=== PATIENT | female | born 1965 | race Hispanic/Latino ===

== ENCOUNTER 2019-06-07 20:40 | Emergency (ER) | payer OTHER, MEDICARE ==
[~2019-06-07 20:40] MED LIST: FAMILY TO BRING; HYDR-4060 PO; LISI40TA4 PO; LORA1TAB3 PO; METH85CR TP; NAPR-1192 PO; PREG300C PO; SIMV20TA6 PO; ZOLP10TA6 PO
[2019-06-07] MEDS ORDERED: ONDANSETRON ODT 4 MG TAB ONE (22:05)
[2019-06-07] MEDS ORDERED: HYDROCODONE/ACETAMINOPHEN 10/325 MG TAB ONE (22:05)
[2019-06-07] MEDS ORDERED: OCTYL 2-CYANOACRYLATE 1 EACH TP ONE (23:24)
== END 2019-06-08 00:05 | disposition home or self-care (01) ==
LOC: EDH 20:40
DX: S81.812A Laceration without foreign body, left lower leg, initial encounter (principal); S00.03XA Contusion of scalp, initial encounter; M54.5 Low back pain; M79.602 Pain in left arm; I10 Essential (primary) hypertension; Z88.1 Allergy status to other antibiotic agents; W10.8XXA Fall (on) (from) other stairs and steps, initial encounter; Y93.89 Activity, other specified; Y92.89 Other specified places as the place of occurrence of the external cause; Y99.8 Other external cause status
CPT/HCPCS: 12032; 70450; 72131; 73060; 73562; 73590

== ENCOUNTER 2023-01-13 12:16 | Emergency (ER) | payer OTHER, MEDICARE ==
[~2023-01-13] VITALS: Ht 162.6 cm; Wt 76.2 kg
[~2023-01-13 12:16] MED LIST changes: -LISI40TA4 PO; +LISI40TA9 PO; +SIMV-43 PO; -SIMV20TA6 PO
[2023-01-13 12:18] VITALS: BP 105/64
[2023-01-13] MEDS ORDERED: MOXIOS OD (12:47)
== END 2023-01-13 12:59 | disposition home or self-care (01) ==
LOC: EDH 12:16
DX: H10.9 Unspecified conjunctivitis (principal); E11.9 Type 2 diabetes mellitus without complications; E78.00 Pure hypercholesterolemia, unspecified; I10 Essential (primary) hypertension; Z79.1 Long term (current) use of non-steroidal anti-inflammatories (NSAID); Z79.899 Other long term (current) drug therapy; Z88.1 Allergy status to other antibiotic agents; Z88.2 Allergy status to sulfonamides

== ENCOUNTER 2023-01-24 17:30 | Emergency (ER) | payer OTHER, MEDICARE ==
[~2023-01-24] VITALS: Ht 162.6 cm; Wt 76.2 kg
[~2023-01-24 17:30] MED LIST changes: +MOXIOS OD
[2023-01-24] MEDS ORDERED: KETOROLAC 30MG VIAL (30MG/ML) IVP ONE (18:00)
[2023-01-24] MEDS ORDERED: ONDANSETRON 4MG INJ IVP ONE (18:00)
[2023-01-24] MEDS ORDERED: 0.9%NACL 1000ML 1,000 ML IV ONE (18:00)
[2023-01-24 18:12] LABS: APPEARANCE,URINE CLEAR (CLEAR); BILIRUBIN,URINE NEGATIVE (NEGATIVE); COLOR,URINE LIGHT-YELLOW (YELLOW); GLUCOSE, URINE (UA) >=1000 mg/dL (NEGATIVE); KETONES,URINE NEGATIVE (NEGATIVE); LEUKOCYTE ESTERASE ,URINE NEGATIVE Leu/uL (NEGATIVE); NITRATE,URINE NEGATIVE (NEGATIVE); OCCULT BLOOD,URINE NEGATIVE (NEGATIVE); PH,URINE 5.5 (5.0-8.0); PROTEIN,URINE NEGATIVE (NEGATIVE); UROBILINOGEN,URINE 0.2 mg/dL (0.2-1.0)
[2023-01-24 18:14] LABS: BACTERIA,URINE RARE /HPF (None Seen); RBC,URINE 0-1 /HPF (0-1); SQUAMOUS EPITHELIAL CELL,UR RARE /HPF (0-2); WBC,URINE 0-1 /HPF (0-1)
[2023-01-24 18:36] LABS: BASOPHILS % (AUTO) 0.5 % (0.0-5.0); EOSINOPHILS % (AUTO) 0.9 % (0.0-8.0); HEMATOCRIT 33.1 % (36-48); LYMPHOCYTES % (AUTO) 24.1 % (21.0-51.0); MEAN CORPUSCULAR HEMOGLOBIN 29.2 pg (27.0-33.0); MEAN CORPUSCULAR HGB CONC 33.5 g/dL (32.0-36.0); MEAN CORPUSCULAR VOLUME 87.1 fL (79-99); NEUTROPHILS % (AUTO) 65.5 % (40.0-77.0); PLATELET COUNT (AUTO) 244 K/uL (130-400); RED CELL DISTRIBUTION WIDTH 13.5 % (11.0-15.5); WHITE BLOOD COUNT (AUTO) 8.9 K/uL (4.8-10.8)
[2023-01-24 18:50] LABS: ALBUMIN 3.4 g/dL (3.5-5.0); CREATININE 1.5 mg/dL (0.5-1.5); POTASSIUM 3.6 mmol/L (3.5-5.1); TOTAL PROTEIN, SERUM 6.6 g/dL (6.0-8.3)
[2023-01-24] MEDS ORDERED: 0.9%NACL 1000ML 2,000 ML IV ONE (19:00)
[2023-01-24] MEDS ORDERED: MORPHINE 4 MG SYG IM ONE (19:30)
[2023-01-24] MEDS ORDERED: MORPHINE 4 MG SYG ONE (19:30)
[2023-01-24] MEDS ORDERED: INSULIN HUMULIN R 100 UNIT/ML 3ML IV ONE (20:00)
[2023-01-24] MEDS ORDERED: CYCL10TA16 PO (21:29)
[2023-01-24] MEDS ORDERED: DOCU-133 PO (21:32)
[2023-01-24 22:03] VITALS: BP 128/78
== END 2023-01-24 22:05 | disposition home or self-care (01) ==
LOC: EDH 17:30
DX: E11.65 Type 2 diabetes mellitus with hyperglycemia (principal); R10.9 Unspecified abdominal pain; K59.00 Constipation, unspecified; I10 Essential (primary) hypertension; E78.00 Pure hypercholesterolemia, unspecified; Z79.899 Other long term (current) drug therapy; Z79.1 Long term (current) use of non-steroidal anti-inflammatories (NSAID); Z88.1 Allergy status to other antibiotic agents; Z88.2 Allergy status to sulfonamides
CPT/HCPCS: 99285; 74176; 96374; 96361; 96375; 80053; 83690; 85025; 82948; 83605 ×2; 82010; 81001; 36415; 96372; J1815; J7030 ×3; J2405; J2270; J1885

== ENCOUNTER 2024-02-04 18:41 | Emergency (ER) | payer OTHER, MEDICARE ==
[~2024-02-04] VITALS: Ht 162.6 cm; Wt 66.2 kg
[~2024-02-04 18:41] MED LIST changes: +ALBUHFA IH; +ALPR-412 PO; +ASPI-1012 PO; +ATOR10 PO; +CARV25TA PO; +CYCL-309 PO; +CYCL10TA16 PO; +DOCU-116 PO; +DOCU-133 PO; +DULA3PEN SQ; +DULO30CA52 PO; +EMPA25TA PO; +ESOM20SU PO; -FAMILY TO BRING; +FERR500P12 MC; +FLUO40CA7 PO; +FOLI0.8C PO; -HYDR-4060 PO; +LISI10TA24 PO; -LISI40TA9 PO; -LORA1TAB3 PO; +METF-446 PO; -METH85CR TP; -NAPR-1192 PO; +PREG150C PO; -PREG300C PO; -SIMV-43 PO; -ZOLP10TA6 PO
[2024-02-04 19:33] VITALS: BP 103/69; PULSE 79; RESP 20; O2SAT 99
== END 2024-02-04 22:34 | disposition left against medical advice (07) ==
LOC: EDH 18:41
DX: R51.9 Headache, unspecified (principal); H53.8 Other visual disturbances; Z53.21 Procedure and treatment not carried out due to patient leaving prior to being seen by health care provider
CPT/HCPCS: 99281

== ENCOUNTER → 2024-04-30 | Outpatient (CLI) | payer OTHER, MEDICARE | END | disposition home or self-care (01) | LOC: RAH 13:18 | PROVIDERS: ATTEND Family Medicine | DX: R07.82 Intercostal pain (principal) | CPT/HCPCS: 71101 ==

== ENCOUNTER 2024-07-12 12:19 | Emergency (ER) | payer OTHER, MEDICARE ==
[~2024-07-12] VITALS: Ht 162.6 cm; Wt 60.3 kg
[2024-07-12] MEDS ORDERED: FAMO-136 PO (13:01)
[2024-07-12] MEDS ORDERED: DIPH-1242 PO (13:01)
[2024-07-12] MEDS ORDERED: HYDR28.32 TP (13:01)
[2024-07-12] MEDS: DiphenhydrAMINE HCL 25 MG CAPSULE PO ONE (13:15)
[2024-07-12] MEDS: dexaMETHasone SOD PHOSPHATE 4 MG/ML 1ML VIAL IM ONE (13:15)
[2024-07-12] MEDS: FAMOTIDINE 20MG TAB PO ONE (13:15)
[2024-07-12 13:40] VITALS: BP 103/69; PULSE 78; RESP 16; TEMP 98.4; O2SAT 98
== END 2024-07-12 13:41 | disposition home or self-care (01) ==
LOC: EDH 12:19
DX: S40.869A Insect bite (nonvenomous) of unspecified upper arm, initial encounter (principal); S90.869A Insect bite (nonvenomous), unspecified foot, initial encounter; E11.9 Type 2 diabetes mellitus without complications; E78.00 Pure hypercholesterolemia, unspecified; I10 Essential (primary) hypertension; Z79.82 Long term (current) use of aspirin; Z79.899 Other long term (current) drug therapy; Z88.2 Allergy status to sulfonamides; Z88.8 Allergy status to other drugs, medicaments and biological substances; Z98.890 Other specified postprocedural states; W57.XXXA Bitten or stung by nonvenomous insect and other nonvenomous arthropods, initial encounter; Y93.89 Activity, other specified; Y92.89 Other specified places as the place of occurrence of the external cause; Y99.8 Other external cause status
CPT/HCPCS: 99283; 96372; J1100; Q0163

== ENCOUNTER 2024-08-15 20:36 | Emergency (ER) | payer OTHER, MEDICARE ==
[~2024-08-15] VITALS: Ht 154.9 cm; Wt 60.3 kg
[~2024-08-15 20:36] MED LIST changes: +DIPH-1242 PO; +FAMO-136 PO; +HYDR28.32 TP
[2024-08-15] MEDS: oxyCODONE/aceTAMIN 5/325MG TAB PO STA (21:34)
[2024-08-15] MEDS: ketOROlac 15MG/ML VIAL (15MG/ML) IM STA (21:39)
[2024-08-15 22:45] VITALS: BP 113/55; PULSE 87; RESP 18; TEMP 98.2; O2SAT 98
== END 2024-08-15 22:50 | disposition home or self-care (01) ==
LOC: EDH 20:36
DX: S30.0XXA Contusion of lower back and pelvis, initial encounter (principal); E11.9 Type 2 diabetes mellitus without complications; I10 Essential (primary) hypertension; Z79.82 Long term (current) use of aspirin; Z79.84 Long term (current) use of oral hypoglycemic drugs; Z79.899 Other long term (current) drug therapy; Z86.73 Personal history of transient ischemic attack (TIA), and cerebral infarction without residual deficits; Z88.1 Allergy status to other antibiotic agents; Z88.2 Allergy status to sulfonamides; X58.XXXA Exposure to other specified factors, initial encounter; Y93.89 Activity, other specified; Y92.89 Other specified places as the place of occurrence of the external cause; Y99.8 Other external cause status
CPT/HCPCS: 99284; 73501; 73552; 72100; 96372; J1885

== ENCOUNTER 2025-04-22 15:52 | Emergency (ER) | payer OTHER, MEDICAID ==
[~2025-04-22] VITALS: Ht 165.1 cm; Wt 54.4 kg
[2025-04-22] MEDS: LORazepam 1 MG TABLET PO STA (16:40)
--- NOTE | 2025-04-22 16:40 | EKG ---
[facility] Test Date: 2025-04-22 Test Time: 16:37:41 Pat Name: PAYTON FRANKLIN Department: ED Room: Gender: F Siebel Developer: [id number] : [id number] Requested By: VANNESA LEDESMA Order Number: [id number] Reading MD: Miguel Jaquez Measurements Intervals Mereta Rate: 70 P: 86 SC: 146 QRS: 86 QRSD: 83 T: 84 QT: 447 QTc: 484 Interpretive Statements Sinus rhythm Nonspecific T abnormalities, lateral leads Compared to ECG 07/02/2023 07:55:17 T-wave abnormality now present Electronically Signed On 04-23-2025 17:16:42 CDT by Miguel Jaquez Please click the below link to view image of tracing.
[2025-04-22 17:16] LABS: BASOPHILS # (AUTO) 0.03 K/uL (0.00-0.20); BASOPHILS % (AUTO) 0.3 % (0.0-5.0); EOSINOPHILS # (AUTO) 0.01 K/uL (0.00-0.70); EOSINOPHILS % (AUTO) 0.1 % (0.0-8.0); HEMATOCRIT 37.3 % (36-48); IMMATURE GRANULOCYTE ABSOLUTE 0.03 K/uL (0-1); LYMPHOCYTES # (AUTO) 1.1 K/uL (1.0-4.8); LYMPHOCYTES % (AUTO) 10.2 % (21.0-51.0); MEAN CORPUSCULAR HEMOGLOBIN 30.4 pg (27.0-33.0); MEAN CORPUSCULAR VOLUME 89.2 fL (79-99); MONOCYTES # (AUTO) 0.3 K/uL (0.1-1.0); NEUTROPHILS # (AUTO) 9.4 K/uL (1.8-7.7); NEUTROPHILS % (AUTO) 86.1 % (40.0-77.0); PLATELET COUNT (AUTO) 306 K/uL (130-400); RED BLOOD CELL COUNT(AUTO) 4.18 MIL/uL (4.00-5.50); RED CELL DISTRIBUTION WIDTH 11.9 % (11.0-15.5)
[2025-04-22 17:28] LABS: CREATININE 0.7 mg/dL (0.5-1.0); POTASSIUM 3.6 mmol/L (3.5-5.1)
--- NOTE | 2025-04-22 18:00 | ERN ---
ED Note History of Present Illness Stated Complaint: ANXIETY Chief Complaint: Anxiety/Panic Attack Time Seen by MD: 15:54 Time Seen by Midlevel: 16:00 Dictation: 59-year-old female with a history of anxiety hypertension and diabetes coming in with complaints of feeling anxiety the shortness a breath and nauseated. Patient states this morning she had has a endoscopy done, routinely, went home and later during the day she began feeling like this. Patient takes alprazolam for her anxiety attacks at home. Allergies: Coded Allergies: Erythromycin Base (Unverified Allergy, Unknown, 09/13/14) azithromycin (Unverified Allergy, Unknown, 09/13/14) sulfamethoxazole (Unverified Allergy, Unknown, 09/13/14) trimethoprim (Unverified Allergy, Unknown, 09/13/14) Home Meds Active Scripts Hydrocortisone (Hydrocortisone 1% 28.35GM) 1 % Crm, 1 APPL TP BID for 5 Days, #28 G Prov:HECTOR HUMPHREYS 07/12/24 Diphenhydramine HCl (Benadryl) 25 Mg Cap, 25 MG PO BID for 5 Days, #10 CAP Prov:HECTOR HUMPHREYS 07/12/24 Famotidine (Pepcid) 20 Mg Tablet, 20 MG PO BID for 5 Days, #10 TAB Prov:HECTOR HUMPHREYS 07/12/24 Docusate Sodium (Dulcolax Stool Softener) 100 Mg Capsule, 100 MG PO DAILY for 7 Days, #7 CAP Prov:SANTIAGO BILLINGSLEYP 01/24/23 Cyclobenzaprine HCl (Flexeril) 10 Mg Tab, 10 MG PO TID PRN for MUSCLE SPASMS, #9 TAB Prov:SANTIAGO BILLINGSLEY 01/24/23 Moxifloxacin HCl (Vigamox 0.5% Ophth Soln) 20 Drop/Ml Opsol, 1 DROP OD TID for 7 Days, #1 DROP Prov:NANCY BYRD KOHINOOR OPERATOR 01/13/23 Reported Medications Pregabalin (Lyrica) 150 Mg Capsule, 150 MG PO BID, CAP 07/03/23 Aspirin (ASPIRIN) 325 Mg Tablet, 325 MG PO DAILY, TAB 07/03/23 Fluoxetine HCl (Prozac) 40 Mg Capsule, 40 MG PO DAILY, CAP 07/03/23 Ferrous Sulfate, Dried (Ferrous Sulfate) 500 Gm Powder, 325 GM MC DAILY, APPL 07/03/23 Esomeprazole Magnesium (Nexium) 20 Mg Suspdr.pkt, 20 MG PO DAILY, PKT 07/03/23 Albuterol Sulfate (Ventolin Hfa/Proventil Hfa/Proair Hfa) 90 Mcg/Puff Puff, 90 MCG IH Q4HPRN PRN for shortness of breath, INHALER 07/03/23 Folic Acid (Folic Acid) 0.8 Mg Capsule, 1 MG PO DAILY, CAP 07/03/23 Dulaglutide (Trulicity) 3 Mg/0.5 Ml Pen.injctr, 3 MG SQ QWEEK 07/03/23 Cyclobenzaprine HCl (Cyclobenzaprine HCl) 10 Mg Tablet, 10 MG PO HSPRN PRN for MUSCLE SPASMS, TAB 07/03/23 Docusate Sodium (Colace) 100 Mg Capsule, 100 MG PO DAILY PRN for constipation, CAP 07/03/23 Atorvastatin Calcium (LIPITOR) 20 Mg Tab, 20 MG PO HS, TAB 07/03/23 Lisinopril (Lisinopril) 10 Mg Tablet, 10 MG PO DAILY, TAB 07/03/23 Carvedilol (Carvedilol) 25 Mg Tablet, 25 MG PO BID, TAB 07/03/23 Metformin HCl (Metformin HCl) 1,000 Mg Tablet, 1000 MG PO BID, TAB 07/03/23 Empagliflozin (Jardiance) 25 Mg Tablet, 25 MG PO DAILY, TAB 07/03/23 Alprazolam (Alprazolam) 2 Mg Tab.rapdis, 2 MG PO BID, TAB 07/03/23 Duloxetine HCl (Duloxetine HCl) 30 Mg Capsule.dr, 30 MG PO DAILY, CAP 07/03/23 Past Medical History Past Medical History: Anxiety, Diabetes-Type II Additional Past Medical Hx: VITILIGO Surgical History: Other Surgical History Other: 6 BACK SX Review of System Dictation Constitutional: Negative for fever,chills, and weight loss Eyes: Negative for injury, pain,redness, and discharge ENT: Negative for injury,pain or swelling Cardiovascular: Negative for chest pain, palpitations, and edema Respiratory: Negative for shortness of breath, cough, and wheezing, Abdomen/GI: Negative for abdominal pain, nausea, vomiting, diarrhea, and constipation Back: Negative for injury and pain : Negative for injury, bleeding and discharge MS/Extremity: Negative for injury and deformity Skin: Negative for rash, and discoloration Neuro: Negative for headache, weakness, numbness, tingling, and seizure , feeling anxious Psych: Negative for suicide ideation, homicidal ideation, and hallucinations Review of Systems: was completed Initial Vital Sign VS Vital Signs Date Time Temp Pulse Resp B/P (MAP) Pulse Ox O2 Delivery O2 Flow Rate FiO2 04/22/25 15:53 98.1 81 16 119/76 98 Room Air 04/22/25 16:34 0 21 Physical Exam Dictation General: awake, alert, NAD Head/Face: Normocephalic, atraumatic Eyes: PERRL, EOMI, vision at baseline ENT: oral cavity clear, TMs clear, no signs of infection Neck: Trachea midline, supple, no nuchal rigidity Cardiovascular: RRR, normal S1/S2, No MRGs, no JVD Respiratory: CTAB, no respiratory distress, No rales or wheezes Abdomen: Soft, non-tender, non-distended, normal bowel sounds, no guarding or rebound. Skin: Warm, dry, normal turgor, no rash MS/Extremity: Pulses equal, no cyanosis, neurovascular intact, FROM Neuro: COAx4, GCS 15, strength 5/5, CN 2-12 intact, normal cerebellar exam, normal gait, Psych: Normal behavior, mood, and affect normal Results (Laboratory/Radiology) Laboratory/Radiology Laboratory Tests Test 04/22/25 17:00 White Blood Count 11.0 K/uL (4.8-10.8) H Red Blood Count 4.18 MIL/uL (4.00-5.50) Hemoglobin 12.7 g/dL (12.0-16.0) Hematocrit 37.3 % (36-48) Mean Corpuscular Volume 89.2 fL (79-99) Mean Corpuscular Hemoglobin 30.4 pg (27.0-33.0) Mean Corpuscular Hemoglobin Concent 34.0 g/dL (32.0-36.0) Red Cell Distribution Width 11.9 % (11.0-15.5) Platelet Count 306 K/uL (130-400) Mean Platelet Volume 10.2 fL (7.5-10.5) Immature Granulocyte % (Auto) 0.3 % (0-1) Neutrophils (%) (Auto) 86.1 % (40.0-77.0) H Lymphocytes (%) (Auto) 10.2 % (21.0-51.0) L Monocytes (%) (Auto) 3.0 % (3.0-13.0) Eosinophils (%) (Auto) 0.1 % (0.0-8.0) Basophils (%) (Auto) 0.3 % (0.0-5.0) Neutrophils # (Auto) 9.4 K/uL (1.8-7.7) H Lymphocytes # (Auto) 1.1 K/uL (1.0-4.8) Monocytes # (Auto) 0.3 K/uL (0.1-1.0) Eosinophils # (Auto) 0.01 K/uL (0.00-0.70) Basophils # (Auto) 0.03 K/uL (0.00-0.20) Absolute Immature Granulocyte (auto 0.03 K/uL (0-1) Nucleated Red Blood Cells 0.0 % (0.0-0.19) Sodium Level 143 mmol/L (136-145) Potassium Level 3.6 mmol/L (3.5-5.1) Chloride Level 100 mmol/L (101-111) L Carbon Dioxide Level 27 mmol/L (21-32) Blood Urea Nitrogen 12 mg/dL (7-18) Creatinine 0.7 mg/dL (0.5-1.0) Glomerular Filtration Rate Calc 101 mL/min (>90) Random Glucose 173 mg/dL (70-105) H Total Calcium 9.7 mg/dL (8.5-10.1) Troponin I High Sensitivity 6 ng/L (4-50) EKG Comment: EKGs done at 4:37 p.m., sinus rhythm, nonspecific T abnormalities, rate of 70 beats per minute. No STEMI interpreted by ER MD ED Course ED Course Orders Procedure Category Date Status Time Cbc With Differential LAB 04/22/25 Complete 16:18 Basic Metabolic Panel LAB 04/22/25 Complete 16:18 Troponin I High LAB 04/22/25 Complete Sensitivity 16:18 12 Lead Ekg Tracing- EKG 04/22/25 Complete Technical 16:18 Lorazepam 1 Mg PHA 04/22/25 Complete (Ativan) 16:18 Current Medications Medications (Trade) Dose Ordered Sig/Viri Route PRN Reason Start Time Stop Time Status Last Admin Dose Admin Lorazepam (AtiVAN) 1 mg ONCE STAT PO 04/22/25 16:18 04/22/25 16:24 DC 04/22/25 16:40 Vital Signs Date Time Temp Pulse Resp B/P (MAP) Pulse Ox O2 Delivery O2 Flow Rate FiO2 04/22/25 17:45 98.2 65 18 122/69 98 Room Air* 0 21 04/22/25 16:34 98.2 68 18 138/77 98 Room Air* 0 21 04/22/25 15:53 98.1 81 16 119/76 98 Room Air Medical Decision Making MDM MDM: 59-year-old female with a history of anxiety hypertension and diabetes coming in with complaints of feeling anxiety the shortness a breath and nauseated. Patient states this morning she had has a endoscopy done, routinely, went home and later during the day she began feeling like this. Patient takes alprazolam for her anxiety attacks at home. Patient states at this time she feels better symptoms have mildly resolved. Denies having any chest pain, chest discomfort, fever, headache, neck pain, diarrhea. Blood work is unremarkable, no leukocytosis no anemia no thrombocytopenia. Chemistry unremarkable. Troponin is negative. EKGs shows no STEMI interpreted by ER MD. patient has not no complaints at this time. Discussed findings, educated this could be anxiety related and some side effects from the anesthesia. Educated patient if anything changes or symptoms return to return back to the emergency room. Patient verbalized understanding, answered all questions. Differential diagnosis: Anxiety, ACS, dehydration Rationale: Tests considered and ordered secondary to shared decision making include: Previous outside records reviewed: Old ER visits. Risk of complication and/or morbidity or mortality of patient management: None Medications-Per medication reconciliation Need for hospitalization: Patient does not meet criteria for hospitalization. Need for emergency major/minor surgery: No There are no social concerns with this patient. Prescription drug management Prescriptions will include symptomatic care Patient's prior external medical records from other ER visits were reviewed by me as indicated. Prior testing and results from previous visits were reviewed. Prior tests were taken into account with medical decision making and resource utilization, independent historian/historians were used to obtain complete medical history. I independently interpreted the test that were performed, results were reviewed by me and considered findings on radiology if ordered. Medical management and examination interpretation discussions were had by me with other qualified healthcare professionals as indicated for the patient's care. DX & DISP Disposition: Discharge Departure Impression: Primary Impression: Anxiety Condition: Stable Additional Instructions: Continue taking your home medications. Follow up with PCP as scheduled. Return to the hospital if you have any worsening symptoms. Referrals: DE RASHEED MD (PCP) Time of Disposition: 17:59 I have reviewed the case, and I agree with, Diagnosis and Plan VANNESA LEDESMA NP Apr 22, 2025 18:00
--- NOTE | 2025-04-22 18:47 | HMCIMG ---
CHEST 1VW HISTORY: Shortness of breath COMPARISON: 04/30/2024 FINDINGS: A frontal projection of the chest was obtained. No acute pulmonary infiltrates is seen. The heart is normal in size. Prominent interstitial markings are seen. No evidence of aortic calcification is seen. IMPRESSION: 1. No acute pulmonary infiltrate is seen.
[2025-04-22 18:51] VITALS: BP 113/62; PULSE 62; RESP 18; TEMP 97.9; O2SAT 98
== END 2025-04-22 18:55 | disposition home or self-care (01) ==
LOC: EDH 15:52
DX: F41.9 Anxiety disorder, unspecified (principal); E11.9 Type 2 diabetes mellitus without complications; Z79.82 Long term (current) use of aspirin; Z79.84 Long term (current) use of oral hypoglycemic drugs; Z79.899 Other long term (current) drug therapy; Z88.1 Allergy status to other antibiotic agents; Z88.2 Allergy status to sulfonamides
CPT/HCPCS: 36415; 71045; 80048; 84484; 85025; 93005; 99285